=== PATIENT | male | born 1990 | race Caucasian/White ===

== ENCOUNTER 2016-11-24 12:56 | Emergency (ER) | payer SELFPAY ==
--- NOTE | 2016-11-24 13:44 | EDM.PDOC ---
ED HPI GENERAL MEDICAL PROBLEM - General Chief Complaint: Lower Extremity Injury/Pain Stated Complaint: RT LEG FELL OFF FORKLIFT Time Seen by Provider: 11/24/16 13:10 Source of Information: Reports: Patient History Limitations: Reports: No Limitations - History of Present Illness INITIAL COMMENTS - FREE TEXT/NARRATIVE: HISTORY AND PHYSICAL: History of present illness: [26-year-old male with no significant past medical history now came to the emergency department for evaluation of right lower extremity injury. 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 He states something fell on his right ankle and leg area. He has some abrasions. His tetanus is up-to-date. Patient is able to bear weight with discomfort. No ankle swelling. He denies head injury or neck pain. No chest pain or shortness of breath. Denies abdominal pain or spinal injury. No hip pain and left leg uninjured. Review of systems: As per history of present illness and below otherwise all systems reviewed and negative. Past medical history: As per history of present illness and as reviewed below otherwise noncontributory. Surgical history: As per history of present illness and as reviewed below otherwise noncontributory. Social history: No reported history of drug or alcohol abuse. Family history: As per history of present illness and as reviewed below otherwise noncontributory. Physical exam: Patient alert communicative cooperative and appropriate. No clinical intoxication. Normocephalic/atraumatic. Nontender C-spine with normal bands range of motion. Clear lungs regular rate and rhythm at 90 heart rate. No tachypnea nontender chest wall no abdominal tenderness or bruising. Nontender spine normal left lower extremity. Right thigh soft and nontender knee unremarkable tenderness right tib-fib distribution midshaft without deformity or swelling. Small abrasions right leg. Right ankle with soft tissue tenderness but no swelling or deformity. Normal range of motion with minimal discomfort. Remedies neurovascularly intact HEENT: Atraumatic, normocephalic, pupils reactive, negative for conjunctival pallor or scleral icterus, mucous membranes moist, throat clear, neck supple, nontender, trachea midline. Lungs: Clear to auscultation, breath sounds equal bilaterally, chest nontender. Heart: S1S2, regular, negative for clicks, rubs, or JVD. Abdomen: Soft, nondistended, nontender. Negative for masses or hepatosplenomegaly. Negative for costovertebral tenderness. Pelvis: Stable nontender. Genitourinary: Deferred. Rectal: Deferred. Extremities: Atraumatic, negative for cords or calf pain. Neurovascular unremarkable. Neuro: Awake, alert, oriented. Cranial nerves grossly unremarkable. Cerebellum unremarkable. Motor and sensory unremarkable throughout. Exam nonfocal. Diagnostics: [X-ray right tib-fib and right ankle EKG with normal sinus rhythm at 86 normal axis no STEMI interpreted by me] Therapeutics: [Ibuprofen by mouth] Impression: [Right lower extremity contusion Right ankle sprain Abrasions right leg] Plan: [Signs and symptoms consistent with contusion and abrasion. Soft compartments with no soft tissue swelling. No bony deformity or tenderness. X-rays pending. Ankle with minimal soft tissue tenderness consistent with mild sprain. If x- rays unremarkable will do her splint patient will use crutches as needed for weightbearing as tolerated. His were to take NSAIDs. Rest ice elevate. Take ibuprofen every 6 hours and Tylenol as needed and follow-up with his DrTimoteo for reevaluation and referral to orthopedics as needed. Patient will follow-up with workman's comp as directed by his employer.] Definitive disposition and diagnosis as appropriate pending reevaluation and review of above. right lower leg Pain Score (Numeric/FACES): 5 - Related Data Allergies Allergy/AdvReac Type Severity Reaction Status Date / Time No Known Allergies Allergy Verified 11/24/16 13:16 Home Meds: Home Meds . [No Known Home Meds] 11/24/16 [History] Past Medical History - Past Health History Medical/Surgical History: Denies Medical/Surgical History Social & Family History - Family History Family Medical History: Noncontributory - Tobacco Use Smoking Status *Q: Current Every Day Smoker Years of Tobacco use: 3 Packs/Tins Daily: 0.5 - Caffeine Use Caffeine Use: Reports: Coffee, Energy Drinks, Soda, Tea - Recreational Drug Use Recreational Drug Use: No Review of Systems - Review of Systems Review Of Systems: See Below (History of present illness) ED EXAM, GENERAL - Physical Exam Exam: See Below (History of present illness) Course - Vital Signs Last Recorded V/S: Last Vital Signs Temp 37.3 C 11/24/16 13:16 Pulse 200 H 11/24/16 13:16 Resp 16 11/24/16 13:16 BP 114/65 11/24/16 13:16 Pulse Ox 99 11/24/16 13:16 - Orders/Labs/Meds Orders: Active Orders 24 hr Category Date Time Status EKG 12 Lead [EKG Documentation Completion] [RC] STAT Care 11/24/16 13:17 Active Ankle Min 3V Rt [CR] Stat Exams 11/24/16 13:23 Taken Chest 1V Frontal [CR] Stat Exams 11/24/16 13:17 Taken Tibia Fibula Rt [CR] Stat Exams 11/24/16 13:23 Taken Peripheral IV Insertion Adult [OM.PC] Stat Oth 11/24/16 13:17 Ordered Labs: Laboratory Tests 11/24/16 11/24/16 11/24/16 Range/Units 13:36 13:36 13:36 WBC 13.10 H (4.0-11.0) K/uL RBC 4.65 (4.50-5.90) M/uL Hgb 13.9 (13.0-17.0) g/dL Hct 40.5 (38.0-50.0) % MCV 87.1 (80.0-98.0) fL MCH 29.9 (27.0-32.0) pg MCHC 34.3 (31.0-37.0) g/dL RDW Std Deviation 41.1 (28.0-62.0) fl RDW Coeff of Ishmael 13 (11.0-15.0) % Plt Count 218 (150-400) K/uL MPV 10.40 (7.40-12.00) fL Neut % (Auto) 84.8 H (48.0-80.0) % Lymph % (Auto) 7.6 L (16.0-40.0) % [place] % (Auto) 6.9 (0.0-15.0) % Eos % (Auto) 0.5 (0.0-7.0) % Baso % (Auto) 0.2 (0.0-1.5) % Neut # (Auto) 11.1 H (1.4-5.7) K/uL Lymph # (Auto) 1.0 (0.6-2.4) K/uL [place] # (Auto) 0.9 H (0.0-0.8) K/uL Eos # (Auto) 0.1 (0.0-0.7) K/uL Baso # (Auto) 0.0 (0.0-0.1) K/uL Nucleated RBC % 0.0 /100WBC Nucleated RBCs # 0 K/uL Sodium 140 (136-146) mmol/L Potassium 3.7 (3.5-5.1) mmol/L Chloride 106 (98-110) mmol/L Carbon Dioxide 25 (21-31) mmol/L BUN 16 (6.0-23.0) mg/dL Creatinine 1.0 (0.6-1.5) mg/dL Est Cr Clr Drug Dosing 128.73 mL/min Estimated GFR (MDRD) > 60.0 ml/min Glucose 83 (60-110) mg/dL Calcium 9.6 (8.8-10.8) mg/dL Troponin I < 0.10 (0.0-0.29) NG/ML Departure - Departure Time of Disposition: 14:56 Disposition: Home, Self-Care 01 Condition: Good Clinical Impression: Contusion of right leg, Right ankle sprain, Abrasion of right leg, Leukocytosis - Discharge Information Instructions: Crutch Use, [id number], Ankle Sprain, [id number] Referrals: PCP,None [Primary Care Provider] - Forms: ED Department Discharge Additional Instructions: You have a contusion of your right leg. It appears you have a mild ankle sprain of your right ankle. Wear air splint as directed and use crutches as needed with weightbearing as tolerated until follow-up with your Dr. in 2-3 days for reevaluation and referral to orthopedics as needed. Rest, apply ice, elevate whenever possible. Take ibuprofen 800 mg every 6 hours as well as Tylenol as needed for pain. Be aware that as an incidental finding today your white blood cell count was 13.1. This is slightly high in this result is very nonspecific. This means it is not clearly associated with were attributable to any particular illness or condition. However, it will be appropriate for you to follow-up with your Dr. for reevaluation and recheck of your white blood cell count to make sure that this abnormal value does not persist or worsen or require further workup to rule out a serious condition. - My Orders Last 24 Hours: My Active Orders 11/24/16 13:17 EKG 12 Lead [EKG Documentation Completion] [RC] STAT Chest 1V Frontal [CR] Stat Peripheral IV Insertion Adult [OM.PC] Stat 11/24/16 13:23 Ankle Min 3V Rt [CR] Stat Tibia Fibula Rt [CR] Stat - Assessment/Plan Last 24 Hours: My Active Orders 11/24/16 13:17 EKG 12 Lead [EKG Documentation Completion] [RC] STAT Chest 1V Frontal [CR] Stat Peripheral IV Insertion Adult [OM.PC] Stat 11/24/16 13:23 Ankle Min 3V Rt [CR] Stat Tibia Fibula Rt [CR] Stat
[2016-11-24 14:14] LABS: CHLORIDE,CL 106 mmol/L (98-110); SODIUM,NA 140 mmol/L (136-146)
[2016-11-24 15:34] VITALS: BP 127/63
--- NOTE | 2016-11-27 11:20 | CR ---
EXAM DATE: 11/24/16 PATIENT'S AGE: 26 Patient: ANDRE LOPEZ Facility: [place], [place] Site . 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 FINDINGS: Three views of the right ankle did not demonstrate soft tissue swelling. The distal tibia, fibula, mortise and talar dome are intact. IMPRESSION: No fracture identified within the right ankle. Dictated by Aydee Jarrett MD @ 11/24/2016 2:37:54 PM Dictated by: Aydee Jarrett MD @ 11/24/2016 14:37:57 (Electronic Signature) Report Signed by Proxy. [facility]uel[facility]
--- NOTE | 2016-11-27 11:21 | CR ---
EXAM DATE: 11/24/16 PATIENT'S AGE: 26 Patient: ANDRE LOPEZ Facility: [place], [place] Site . 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 FINDINGS: Two views of the right tibia and fibula demonstrate normal alignment at the knee and ankle. Tibia and fibular diaphyses are intact. No fracture seen. IMPRESSION: No fracture or dislocation identified. Dictated by Aydee Jarrett MD @ 11/24/2016 2:38:41 PM Dictated by: Aydee Jarrett MD @ 11/24/2016 14:38:44 (Electronic Signature) Report Signed by Proxy. [facility]
--- NOTE | 2016-11-27 11:22 | CR ---
EXAM DATE: 11/24/16 PATIENT'S AGE: 26 Patient: ANDRE LOPEZ Facility: [place], [place] Site . Site : 1990 Study: XRay Chest [id number]/29/2017 2:33:05 PM Ordering Physician: Krishna Arreola Final Report: HISTORY: Chest pain. FINDINGS: PA chest radiograph demonstrates a normal cardiac silhouette. Pulmonary vasculature and scarlett are normal. No consolidation, pleural effusion or pneumothorax is seen. No displaced rib fracture is identified. IMPRESSION: No acute cardiopulmonary disease. Dictated by Aydee Jarrett MD @ 11/24/2016 2:39:35 PM Dictated by: Aydee Jarrett MD @ 11/24/2016 14:39:37 (Electronic Signature) Report Signed by Proxy. [facility]
== END 2016-11-24 15:25 | disposition home or self-care (01) ==
LOC: MW.ED 12:56
DX: S80.11XA Contusion of right lower leg, initial encounter (principal); S93.401A Sprain of unspecified ligament of right ankle, initial encounter; S80.811A Abrasion, right lower leg, initial encounter; D72.829 Elevated white blood cell count, unspecified; F17.210 Nicotine dependence, cigarettes, uncomplicated; W20.8XXA Other cause of strike by thrown, projected or falling object, initial encounter
CPT/HCPCS: 36415; 71010; 71010-26; 73590-26-RT; 73590-RT; 73610-26-RT; 73610-RT; 80048; 84484; 85025; 93005; 99283; 99284-25

== ENCOUNTER 2016-12-07 11:25 | Emergency (ER) | payer SELFPAY ==
[2016-12-07] MEDS ORDERED: Proparacaine 0.5% Ophth Soln 15 ML Bottle EYELF STA (12:16)
--- NOTE | 2016-12-07 12:31 | EDM.PDOC ---
ED HPI GENERAL MEDICAL PROBLEM - General Chief Complaint: ENT Problem Stated Complaint: LT EYE HURTS Time Seen by Provider: 12/07/16 12:01 Source of Information: Reports: Patient History Limitations: Reports: No Limitations - History of Present Illness INITIAL COMMENTS - FREE TEXT/NARRATIVE: HISTORY AND PHYSICAL: History of present illness: Patient is a 26-year-old male who presents to the emergency room today with complaints of left eye pain and irritation. States he was at work and grinding some wood, was wearing protective eyewear but felt that some foreign objects/ debris went into his eyes. States he flushed them out while at work but the left eye continued to cause him discomfort and photophobia. He does not wear any corrective contact lenses or glasses. Review of systems: As per history of present illness and below otherwise all systems reviewed and negative. Past medical history: As per history of present illness and as reviewed below otherwise noncontributory. Surgical history: As per history of present illness and as reviewed below otherwise noncontributory. Social history: No reported history of drug or alcohol abuse. Family history: As per history of present illness and as reviewed below otherwise noncontributory. Physical exam: HEENT: Atraumatic, normocephalic, pupils reactive, negative for conjunctival pallor or scleral icterus, the right sclera is injected, with no sign of FB when using the florasene/fulton lamp during exam. Corneal abrasion noted to the 7 o'clock position. Oral mucous membranes moist, throat clear, neck supple, nontender, trachea midline. Lungs: Clear to auscultation, breath sounds equal bilaterally, chest nontender. Heart: S1S2, regular, negative for clicks, rubs, or JVD. Abdomen: Soft, nondistended, nontender. Negative for masses or hepatosplenomegaly. Negative for costovertebral tenderness. Pelvis: Stable nontender. Genitourinary: Deferred. Rectal: Deferred. Extremities: Atraumatic, negative for cords or calf pain. Neurovascular unremarkable. Neuro: Awake, alert, oriented. Cranial nerves II through XII unremarkable. Cerebellum unremarkable. Motor and sensory unremarkable throughout. Exam nonfocal. During the eye exam there was no foreign body noted. The floor seen strip did uptake at the 7 o'clock position indicating a corneal abrasion. Discussed with patient to use the eye antibiotic as directed. May wear sunglasses as a shield to provide comfort with the light sensitivity. Discussed that he should follow- up with the pathology lab technician, patient is agreeable to plan of care. He denies any further questions at this time. Diagnostics: Therapeutics: [] Impression: Corneal abrasion Plan: Please use the eye ophthalmic ointment as directed. He can apply a thin ribbon to the left eye every 3-4 hours for the next 7 days. As we discussed I would like you to follow-up with the pathology lab technician in the next 1-2 days. Return to the ED as needed as discussed Definitive disposition and diagnosis as appropriate pending reevaluation and review of above. Duration: Day(s): Location: Reports: Face Left Eye Pain Score (Numeric/FACES): 5 - Related Data Allergies Allergy/AdvReac Type Severity Reaction Status Date / Time No Known Allergies Allergy Verified 12/07/16 11:44 Home Meds: Home Meds . [No Known Home Meds] 11/24/16 [History] Past Medical History - Past Health History Medical/Surgical History: Denies Medical/Surgical History Social & Family History - Family History Family Medical History: Noncontributory - Tobacco Use Smoking Status *Q: Current Every Day Smoker Years of Tobacco use: 3 Packs/Tins Daily: 0.5 - Caffeine Use Caffeine Use: Reports: Coffee, Energy Drinks, Soda, Tea - Recreational Drug Use Recreational Drug Use: Yes Recreational Drug Type: Reports: Marijuana/Hashish ED ROS ENT - Review of Systems Review Of Systems: ROS reveals no pertinent complaints other than HPI. ED EXAM, ENT - Physical Exam Exam: See Below Course - Vital Signs Last Recorded V/S: Last Vital Signs Temp 36.6 C 12/07/16 11:45 Pulse 56 L 12/07/16 11:45 Resp 18 12/07/16 11:45 BP 119/65 12/07/16 11:45 Pulse Ox 100 12/07/16 11:45 - Orders/Labs/Meds Meds: Medications Discontinued Medications Generic Name Dose Route Start Last Admin Trade Name Freq PRN Reason Stop Dose Admin Proparacaine HCl 2 ml 12/07/16 12:16 Proparacaine 0.5% Ophth Soln EYELF 12/07/16 12:17 NOW STA Departure - Departure Time of Disposition: 12:31 Disposition: Home, Self-Care 01 Clinical Impression: Corneal abrasion, left Qualifiers: Encounter type: initial encounter Qualified Code(s): S05.02XA - Injury of conjunctiva and corneal abrasion without foreign body, left eye, initial encounter - Discharge Information Referrals: PCP,None [Primary Care Provider] - Additional Instructions: My general discharge The following information is given to patients seen in the emergency department who are being discharged to home. This information is to outline your options for follow-up care. We provide all patients seen in our emergency department with a follow-up referral. The need for follow-up, as well as the timing and circumstances, are variable depending upon the specifics of your emergency department visit. If you don't have a primary care physician on staff, we will provide you with a referral. We always advise you to contact your personal physician following an emergency department visit to inform them of the circumstance of the visit and for follow-up with them and/or the need for any referrals to a consulting specialist. The emergency department will also refer you to a specialist when appropriate. This referral assures that you have the opportunity for follow-up care with a specialist. All of these measure are taken in an effort to provide you with optimal care, which includes your follow-up. Under all circumstances we always encourage you to contact your private physician who remains a resource for coordinating your care. When calling for follow-up care, please make the office aware that this follow-up is from your recent emergency room visit. If for any reason you are refused follow-up, please contact the [facility] Emergency Department at and asked to speak to the emergency department charge nurse. [address] [address] Please use the eye ophthalmic ointment as directed. Please apply a thin ribbon to the left eye every 3-4 hours for the next 7 days. As we discussed I would like you to follow-up with the pathology lab technician in the next 1-2 days. Return to the ED as needed as discussed
[2016-12-07 20:12] VITALS: BP 109/58
== END 2016-12-07 13:06 | disposition home or self-care (01) ==
LOC: MW.ED 11:25
DX: S05.02XA Injury of conjunctiva and corneal abrasion without foreign body, left eye, initial encounter (principal); F17.210 Nicotine dependence, cigarettes, uncomplicated; X58.XXXA Exposure to other specified factors, initial encounter
CPT/HCPCS: 99282; 99283